=== PATIENT | male | born 1980 | race Two or more races ===

== ENCOUNTER 2019-08-27 10:55 | Emergency (ER) | payer MEDICAID ==
[~2019-08-27] VITALS: Ht 177.8 cm; Wt 88.5 kg
--- NOTE | 2019-08-27 10:41 | Emergency Room Report ---
History of Present Illness General Chief Complaint: Upper Respiratory Illness Present Illness HPI Patient is a 39-year-old male who presents after increased nasal congestion and nonproductive cough. Onset of symptoms approximately 1 week ago. Had brief episode of body aches and chills. This had resolved. He denies any current symptoms. He states he has prior history of hypertension but has not previously been on medications. Denies any fever. Denies any shortness of breath. Reports having some slight increased nasal congestion over the past few weeks. He requests note to return back to work. 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 Denies currently being on antihypertensives. COVID-19 risk:Contact w/high r: No COVID-19 risk:Travel to affect: No Has patient experienced woodward: No Allergies: Coded Allergies: No Known Allergies (Unverified , 08/27/19) Patient History Past Medical History: HTN Reviewed Nursing Documentation: PMH: Agreed; PSxH: Agreed Review of Systems All Other Systems: limited Physical Exam Vital Signs Date Time Temp Pulse Resp B/P (MAP) Pulse Ox O2 Delivery O2 Flow Rate FiO2 08/27/19 10:27 98.4 100 18 191/105 (133) 95 Room Air General Appearance: well appearing, no apparent distress, alert, GCS 15 Head: normocephalic, atraumatic ENT: hearing grossly normal, normal voice Neck: full range of motion, supple Respiratory: chest non-tender, lungs clear, no respiratory distress, speaking full sentences Cardiovascular #1: normal inspection, no edema Gastrointestinal: normal inspection Genitourinary: penis normal Musculoskeletal: no calf tenderness Neurologic: alert, motor strength/tone normal, 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 Differential diagnosis include was not limited to upper respiratory infection, viral infection, coronavirus among others. Patient has a benign exam and does not appear to require any imaging or laboratory testing at this time. Patient does not appear to require any testing and appears healthy at this time however given his recent symptoms and current prevalence of Covid 19 I cannot clear him for work at this time. Patient was advised to continue self quarantine for 1 more week. He was advised to follow-up with his primary care physician for clearance for work. He was given prescription for Norvasc due to hypertension. He does not have any symptoms due to hypertension at this time. The patient is advised to follow up with primary care doctor in 7 days. Patient is advised to return if any worsening condition or if any changes in status that are concerning. This report is dictated with [facility] strawhat sizer software which may occasionally lead to discrepancies related to use of this software. Last Vital Signs Date Time Temp Pulse Resp B/P (MAP) Pulse Ox O2 Delivery O2 Flow Rate FiO2 08/27/19 10:27 98.4 100 18 191/105 (133) 95 Room Air Status: improved Disposition: HOME, SELF-CARE Condition: Stable Scripts Amlodipine Besylate* (AMLODIPINE BESYLATE*) 5 Mg Tablet 5 MG ORAL DAILY, #30 TAB Prov: Iraj Olmos MD 08/27/19 Departure Forms: Return to Work Return to Work in (Days): 7 Patient Instructions: Upper Respiratory Infection, Adult Additional Instructions: Self quarantine at home for 1 week. Follow up with your doctor for recheck and clearance to go back to work. Return for shortness of breath or any other concerns. Iraj Olmos MD Aug 27, 2019 10:41
[~2019-08-27 10:55] MED LIST: AMLODIPINE BESYL5 MG ORAL
--- NOTE | 2019-08-27 10:55 | NUR ---
ER DISCHARGE NOTE: Patient is cleared to be discharged per ERMD, pt is aox4, on room air, with stable vital signs. pt was given dc and prescription instructions, pt was able to verbalize understanding. pt is able to ambulate with steady gait. pt took all belongings.
[2019-08-27 12:04] VITALS: BP 191/105
== END 2019-08-27 11:20 | disposition home or self-care (01) ==
LOC: EDBD 10:55 → EMR 11:00
DX: J06.9 Acute upper respiratory infection, unspecified (principal); I10 Essential (primary) hypertension
CPT/HCPCS: 99282

== ENCOUNTER 2020-02-09 01:17 | Emergency (ER) | payer MEDICAID ==
[~2020-02-09] VITALS: Ht 175.3 cm; Wt 70.3 kg
[~2020-02-09 01:17] MED LIST changes: +ASPIR 8181 MG ORAL
[2020-02-09] MEDS ORDERED: Metoclopramide 10mg/2ml Inj IVP ONE (01:45)
[2020-02-09] MEDS ORDERED: DiphenhydrAMINE 50mg/ml Inj IVP ONE (01:45)
[2020-02-09] MEDS ORDERED: Morphine Sulfate 4mg/ml Inj (IV USE ONLY) IVP ONE ×2 (01:45→04:00)
[2020-02-09] MEDS ORDERED: Omnipaque-300 100ml vial INJ PRN (01:45)
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
--- NOTE | 2020-02-09 02:17 | Diagnostic Imaging Report ---
EXAM: XR Chest, 1 View CLINICAL HISTORY: ABD PAIN TECHNIQUE: Frontal view of the chest. COMPARISON: 10/26/2019 chest x-ray FINDINGS: Lungs: Lungs are hypoventilatory. Pleural space: Unremarkable. No pneumothorax. Heart: Unremarkable. No cardiomegaly. Mediastinum: Unremarkable. Bones/joints: Unremarkable. IMPRESSION: Lungs are hypoventilatory. Otherwise no acute cardiopulmonary process shown.
[2020-02-09 02:21] LABS: BASOPHILS % (AUTO) 1.6 % (0.0-2.0); EOSINOPHILS % (AUTO) 1.6 % (0.0-3.0); HEMATOCRIT 43.7 % (42.0-52.0); LYMPHOCYTES % (AUTO) 29.3 % (20.0-45.0); MEAN CORPUSCULAR VOLUME 93 FL (80-99); MONOCYTES % (AUTO) 6.5 % (1.0-10.0); NEUTROPHILS % (AUTO) 60.9 % (45.0-75.0); PLATELET COUNT 129 K/UL (150-450); RED BLOOD COUNT 4.72 M/UL (4.70-6.10); RED CELL DISTRIBUTION WIDTH 11.5 % (11.6-14.8); WHITE BLOOD COUNT 7.9 K/UL (4.8-10.8)
[2020-02-09 02:31] LABS: ANION GAP 9 mmol/L (5-15); BLOOD UREA NITROGEN 6 mg/dL (7-18); CALCIUM 9.2 MG/DL (8.5-10.1); CARBON DIOXIDE 29 MMOL/L (21-32); CHLORIDE 99 MMOL/L (98-107); CREATININE 0.7 MG/DL (0.55-1.30); INR 1.2 (0.9-1.1); POTASSIUM 3.4 MMOL/L (3.5-5.1); SODIUM 137 MMOL/L (136-145)
[2020-02-09 02:33] LABS: ALANINE AMINOTRANSFERASE 171 U/L (12-78); ALBUMIN 4.2 G/DL (3.4-5.0); ALBUMIN/GLOBULIN RATIO 0.9 (1.0-2.7); ALKALINE PHOSPHATASE 136 U/L (46-116); ASPARTATE AMINO TRANSFERASE 108 U/L (15-37); BILIRUBIN,TOTAL 0.8 MG/DL (0.2-1.0); CREATINE KINASE 62 U/L (26-308)
[2020-02-09 03:54] VITALS: BP 111/66
[2020-02-09 04:04] LABS: APPEARANCE,URINE CLEAR; BILIRUBIN, URINE NEGATIVE (NEGATIVE); COLOR,URINE PALE YELLOW; GLUCOSE, URINE (UA) NEGATIVE (NEGATIVE); KETONES,URINE NEGATIVE (NEGATIVE); LEUKOCYTE ESTERASE ,URINE NEGATIVE (NEGATIVE); NITRITE,URINE NEGATIVE (NEGATIVE); PH,URINE 7 (4.5-8.0); PROTEIN,URINE NEGATIVE (NEGATIVE); UROBILINOGEN,URINE NORMAL MG/DL (0.0-1.0)
--- NOTE | 2020-02-09 04:09 | Diagnostic Imaging Report ---
EXAM: CT Abdomen and Pelvis With Intravenous Contrast CLINICAL HISTORY: ABD PAIN TECHNIQUE: Axial computed tomography images of the abdomen and pelvis with intravenous contrast. CTDI is 5.80 mGy and DLP is 311.30 mGy-cm. One or more of the following dose reduction techniques were used: automated exposure control, adjustment of the mA and/or kV according to patient size, use of iterative reconstruction technique. COMPARISON: No relevant prior studies available. FINDINGS: Lung bases: Unremarkable. No mass. No consolidation. ABDOMEN: Liver: Unremarkable. No mass. Gallbladder and bile ducts: There is apparent mild wall thickening to the gallbladder. No calcified stones. No ductal dilation. Pancreas: Unremarkable. No mass. No ductal dilation. Spleen: Unremarkable. No splenomegaly. Adrenals: Unremarkable. No mass. Kidneys and ureters: Unremarkable. No solid mass. No hydronephrosis. Stomach and bowel: There are fluid-fluid levels in distended small bowel loops with distal small bowel collapse. Postop changes from partial left colectomy. PELVIS: Appendix: The appendix is normal. Bladder: Distended urinary bladder. Reproductive: Unremarkable as visualized. ABDOMEN and PELVIS: Intraperitoneal space: Unremarkable. No free air. No significant fluid collection. Bones/joints: No acute fracture. No dislocation. Soft tissues: Unremarkable. Vasculature: Unremarkable. No abdominal aortic aneurysm. Lymph nodes: Unremarkable. No enlarged lymph nodes. IMPRESSION: 1. Postoperative changes from partial left colectomy with findings of small bowel obstruction, transition point not well seen although possibly related to adhesions near the surgical anastomosis. No findings of bowel perforation. 2. Equivocal findings of gallbladder wall thickening or pericholecystic fluid on CT. If clinically warranted, additional imaging by gallbladder ultrasound could be pursued.
[2020-02-09 07:25] VITALS: BP 115/72
[2020-02-09 08:40] VITALS: BP 118/76
--- NOTE | 2020-02-13 01:57 | Cardiology Report ---
APPROVED REPORT EKG Measurement Heart [id number] <Conclusion> Normal sinus rhythm Normal ECG
== END 2020-02-09 08:40 | disposition other institution (70) ==
LOC: EMR 01:59
DX: K56.609 Unspecified intestinal obstruction, unspecified as to partial versus complete obstruction (principal); F17.200 Nicotine dependence, unspecified, uncomplicated; I10 Essential (primary) hypertension
CPT/HCPCS: 36415; 71045; 74177; 80053; 81003; 82550; 83690; 84484; 85025; 85610; 85730; 86850; 86900; 86901; 93005; 96361; 96374; 96375; 96376; J1200; J2270; J2405; J2765; J7030; Q9965; U0002; Z7502; 99284

== ENCOUNTER 2020-04-01 21:30 | Emergency (ER) | payer MEDICAID ==
[~2020-04-01] VITALS: Ht 175.3 cm; Wt 68.0 kg
--- NOTE | 2020-04-01 21:45 | NUR ---
ED Nurse Note: note reading 2345 was charted for 2144.
[2020-04-01] MEDS ORDERED: Morphine Sulfate 2mg/ml Inj(IV/IM USE ONLY) IVP ONE (22:00)
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
[2020-04-01] MEDS ORDERED: IBUPROFEN600 M1 ORAL (22:30)
[2020-04-01] MEDS ORDERED: NORCO 5-325 TA1 EAC1 ORAL (22:30)
[2020-04-01] MEDS ORDERED: Ketorolac 30mg Inj IM ONE (23:15)
[2020-04-01 23:20] VITALS: BP 137/86
--- NOTE | 2020-04-01 23:20 | NUR ---
ER DISCHARGE NOTE: Patient is cleared to be discharged per ERMD, pt is aox4, on room air, with stable vital signs. pt was given dc and prescription instructions, pt was able to verbalize understanding, pt id band removed without complications. pt is able to ambulate with steady gait. pt took all belongings.
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
--- NOTE | 2020-04-02 16:40 | Diagnostic Imaging Report ---
Indication: Pain, trauma Technique: 2 views of the right shoulder Comparison: none Findings: There is anterior dislocation of the right humeral head. No definite associated fracture deformity. Impression: Positive for anterior right shoulder dislocation
--- NOTE | 2020-04-02 16:41 | Diagnostic Imaging Report ---
Indication: Pain, trauma, status post reduction Technique: 3 views of the right shoulder Comparison: One hour earlier Findings: Reduction of previously demonstrated right shoulder dislocation. Linear osseous opacity is seen inferior to the glenoid neck, probably represents a spur Impression: Satisfactory reduction of previously demonstrated right shoulder dislocation
== END 2020-04-01 23:23 | disposition home or self-care (01) ==
LOC: EMR 22:00
DX: S43.004A Unspecified dislocation of right shoulder joint, initial encounter (principal); W05.1XXA Fall from non-moving nonmotorized scooter, initial encounter; Y92.9 Unspecified place or not applicable; I10 Essential (primary) hypertension
CPT/HCPCS: 23650; 73030; 96372; 96374; J1885; J2270; Z7502; 99283